=== PATIENT | female | born 2000 | race Two or more races ===

== ENCOUNTER 2023-11-25 22:20 | Observation (INO) | payer SELFPAY ==
[~2023-11-25] VITALS: Ht 162 cm; Wt 101.2 kg
[2023-11-25] MEDS ORDERED: cefTRIAXone 1,000 MG in LIDOCAINE MPF 1% 2.1 ML IM SCH (23:30)
[2023-11-25] MEDS ORDERED: ACETAMINOPHEN EXTRA STRENGTH 500 MG TAB PO SCH (23:30)
[2023-11-25] MEDS ORDERED: cefTRIAXone 1,000 MG VIAL ONE (23:33)
== END 2023-11-26 00:47 | disposition home or self-care (01) ==
LOC: MLD 22:20
PROVIDERS: ADMIT Obstetrics & Gynecology; ATTEND Obstetrics & Gynecology
DX: O99.891 Other specified diseases and conditions complicating pregnancy (principal); M54.9 Dorsalgia, unspecified; Z3A.22 22 weeks gestation of pregnancy
CPT/HCPCS: 96372; G0378; J0696; 81000